=== PATIENT | female | born 1985 | race Caucasian/White ===

== ENCOUNTER 2016-11-14 10:14 | Emergency (ER) | payer OTHER ==
[2016-11-14] MEDS ORDERED: MOTRIN PO ONE (13:12)
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
[2016-11-14 13:42] VITALS: BP 101/67
== END 2016-11-14 14:28 | disposition home or self-care (01) ==
LOC: EDSEX → ED 10:14
DX: S13.4XXA Sprain of ligaments of cervical spine, initial encounter (principal); S39.012A Strain of muscle, fascia and tendon of lower back, initial encounter; V49.49XA Driver injured in collision with other motor vehicles in traffic accident, initial encounter; Y93.9 Activity, unspecified; Y92.9 Unspecified place or not applicable; Y99.9 Unspecified external cause status
CPT/HCPCS: 99282